=== PATIENT | male | born 1980 | race Caucasian/White ===

== ENCOUNTER 2019-07-31 18:50 | Emergency (ER) | payer BC, SELFPAY ==
[~2019-07-31] VITALS: Ht 165.1 cm; Wt 99.8 kg
[2019-07-31] MEDS ORDERED: IBUPROFEN600 MG PO (19:10)
[2019-07-31] MEDS ORDERED: TYLENOL325 MG PO (19:10)
[2019-07-31] MEDS ORDERED: DOXYCYCLINE HY100 MG PO (20:28)
== END 2019-07-31 21:26 | disposition home or self-care (01) ==
LOC: ED 18:50
DX: J18.9 Pneumonia, unspecified organism (principal)
CPT/HCPCS: 71045; 80053; 81001; 83605; 85025; 87502; 94640; 94664; 96361; 96365; 99283-25; J0696; J7030